=== PATIENT | male | born 1985 | race Caucasian/White ===

== ENCOUNTER 2022-10-12 21:44 | Emergency (ER) | payer MEDICAID | END 2022-10-12 22:31 | disposition home or self-care (01) | LOC: CC.ED 21:44 | DX: S93.601A Unspecified sprain of right foot, initial encounter (principal); S93.401A Sprain of unspecified ligament of right ankle, initial encounter; J45.909 Unspecified asthma, uncomplicated; Z88.1 Allergy status to other antibiotic agents; Z79.899 Other long term (current) drug therapy; W01.0XXA Fall on same level from slipping, tripping and stumbling without subsequent striking against object, initial encounter; Y93.6A Activity, physical games generally associated with school recess, summer camp and children | CPT/HCPCS: 73610-RT; 73630-RT; 99283 ==

== ENCOUNTER 2024-05-09 08:21 | Emergency (ER) | payer MEDICAID | END 2024-05-09 09:20 | disposition home or self-care (01) | LOC: CC.ED 08:21 | DX: S53.402A Unspecified sprain of left elbow, initial encounter (principal); J45.909 Unspecified asthma, uncomplicated; E78.00 Pure hypercholesterolemia, unspecified; Z88.8 Allergy status to other drugs, medicaments and biological substances; Z79.899 Other long term (current) drug therapy; X50.9XXA Other and unspecified overexertion or strenuous movements or postures, initial encounter | CPT/HCPCS: 73080-LT; 99283 ==